=== PATIENT | male | born 2000 | race Asian ===

== ENCOUNTER 2021-09-29 17:14 | Inpatient (IN) ==
[2021-09-29] MEDS ORDERED: SODIUM CHLORIDE 0.9% 1000ML 2,000 ML IV ONE (17:35)
[2021-09-29 17:58] LABS: Appearance Urine Clear (Clear); Basophils # (auto) 0.02 K/uL (0-0.2); Basophils % (auto) 0.2 %; Bilirubin Urine Negative (Negative); Blood Urine Negative (Negative); Color Urine Yellow; Eosinophils # (auto) 0.19 K/uL (0-0.5); Glucose Urine UA 3+ (Negative); Hematocrit (blood only) 43.3 % (42-52); Hemoglobin 14.9 g/dL (14.0-18.0); Immature Granulocytes # (auto) 0.01 K/uL (0.00-0.02); Immature Granulocytes % (auto) 0.1 %; Ketones Urine Negative (Negative); Leukocyte Esterase Urine Negative (Negative); Lymphocytes # (auto) 2.67 K/uL (1.2-3.4); Lymphocytes % (auto) 28.1 %; Mean Corpuscular Hemoglobin 29.4 pg (25-34); Mean Corpuscular Hgb Conc 34.4 g/dL (32-36); Mean Corpuscular Volume 85.4 fL (80-100); Mean Platelet Volume 10.7 fL (7.4-10.4); Monocytes # (auto) 0.64 K/uL (0.11-0.59); Monocytes % (auto) 6.7 %; Neutrophils # (auto) 5.97 K/uL (1.4-6.5); Neutrophils % (auto) 62.9 %; Nitrite Urine Negative (Negative); Platelet Count 197 K/uL (130-400); Protein Urine Negative (Negative); RDW Coefficient of Variation 12.5 % (11.5-14.5); RDW Standard Deviation 38.5 fL (36.4-46.3); Red Blood Count 5.07 M/uL (4.7-6.1); Specific Gravity Urine 1.036 (1.000-1.030); Urobilinogen Urine Negative (Negative); pH Urine 6.5 (4.5-7.5)
[2021-09-29 18:06] LABS: Base Excess VBG 0.1 mEq/L; Oxygen Saturation VBG 75.9 %; pH VBG 7.37 (7.36-7.41)
[2021-09-29 18:13] LABS: Troponin I < 0.03 ng/ml (0-0.04)
--- NOTE | 2021-09-29 18:13 | Emergency Department Note ---
Impression & Plan Acute hyperglycemia, Diabetes mellitus, new onset ED Provider Note NAME: MARYBETH CARMONA AGE: 21 SEX: M : 2000 ARRIVES VIA: Walk-In INFORMANT: Patient, ED PROVIDER(S): Prince Marques DO CHIEF COMPLAINT: Polyuria HPI: Patient is a 21-year-old male who presented to the emergency department from [facility] for an evaluation of elevated blood sugar. The patient states that he has no history of diabetes but he is noticed polyuria and polydipsia. He checked his sugar with the machine he had at home. He has a family history of nakita ila. He went to [facility] and was evaluated and was found to have a very high blood sugar. He has noticed polyuria and polydipsia. He is also noticed some abdominal cramping. He denies having any fever. He denies having any cough or difficulty breathing. He states he has had some changes to his eating patterns. He is never had similar symptoms in the past. The patient states he came directly to the emergency department. He takes no medications. ROS: See above HPI for pertinent positives & negatives. A total of 10 systems reviewed and were otherwise negative. PAST MEDICAL HISTORY: See Below PAST SURGICAL HISTORY: See Below FAMILY HISTORY: See Below SOCIAL HISTORY: See Below HOME MEDICATIONS: See Below ALLERGIES: See Below VITALS: See Below PHYSICAL EXAMINATION: GENERAL: Patient is awake alert in no acute distress patient is resting comfortably and showing no signs of anxiety EYES: The conjunctivae are clear. The pupils are round and reactive. EARS, NOSE, MOUTH AND THROAT: The nose is without any evidence of any deformity. NECK: The neck is nontender and supple. RESPIRATORY: Normal respiratory effort is noted there is no evidence of wheezing rhonchi or rales CARDIOVASCULAR: Regular rate and rhythm noted there no murmurs rubs or gallops normal S1 normal S2. GASTROINTESTINAL: The abdomen is soft. Abdomen is nontender. MUSCULOSKELETAL/EXTREMITIES: There is no evidence of gross deformity full range of motion is noted in the hips and shoulders. SKIN: There is no obvious evidence of any rash. There are no petechiae, pallor or cyanosis noted. NEUROLOGIC: Patient is awake alert and oriented x3 MEDICAL DECISION MAKING: The patient is a 21-year-old male who presented to the emergency department for an evaluation of polyuria and polydipsia. The patient did check his blood sugar it was elevated at home. He was seen at [facility] and sent to the emergency department for further evaluation. The patient was treated with IV fluids in the emergency department. I discussed the patient's laboratory results with him. I also discussed his case with the on-call [facility] hospitalist. Given the patient's significant elevation in blood sugar I do feel the patient may be a better candidate for inpatient management. Triage Nursing notes reviewed. Prior medical records reviewed Vital Signs: reviewed and remarkable for elevated blood pressure and tachycard ia. Differential diagnosis: Infection, dehydration, metabolic abnormality, hypo/hyperglycemia, electrolyte disturbance, anemia, hypoxia, cardiac sources, intracerebral event, toxicologic, neurologic, as well as other pathologies. ER treatment provided: See below Diagnostics interpreted by me: ECG: EKG was obtained in the emergency department. My interpretation is normal sinus rhythm at 84 bpm. There was no ectopy. There is no acute ST segment abnormalities noted. Nonspecific inferior T wave abnormalities were noted. No previous tracing was available. Cardiac Monitoring: An order was placed for continuous cardiac monitoring. The monitor shows a rate of 94 bpm with sinus rhythm. Laboratory studies: As stated above and show below. Imaging studies: See below Consultation(s): Discussed this case [facility] Dr[facility] Past Med/Surg History Social History Smoking Status: Never smoker Feels Safe at Home: Yes Allergies Allergies Allergy/AdvReac Type Severity Reaction Status Date / Time No Known Allergies Allergy Unverified 09/29/21 19:26 Home Meds Home Medications Medication Instructions Recorded Confirmed No Known Home Medications 09/29/21 09/29/21 Results & Data (ED) Vital Signs Vital Signs - 24 hr 09/29/21 17:16 09/29/21 17:48 09/29/21 17:51 Temperature 36.4 C L Temperature Source Temporal Artery Scan Pulse Rate 94 H Respiratory Rate 18 14 Blood Pressure 155/70 H Blood Pressure [Right Arm] 144/78 H Blood Pressure Mean 98 Blood Pressure Mean [Right Arm] 100 Blood Pressure Position Sitting Pulse Oximetry 95 99 99 Oxygen Delivery Method Room Air Room Air Room Air Sepsis Recent Fever Within 48 Hours No Sepsis New/Unexplained Change in Mental Status No Sepsis Action Taken by Nursing No Action Required Home Medications Current Medication List: was personally reviewed by me Laboratory Data Attestation: I reviewed the patient's lab results. Result diagrams: 09/29/21 17:35 09/29/21 17:41 Lab Results 09/29/21 09/29/21 09/29/21 Range/Units 17:28 17:35 17:35 WBC 9.50 (4.8-10.8) K/uL RBC 5.07 (4.7-6.1) M/uL Hgb 14.9 (14.0-18.0) g/dL Hct 43.3 (42-52) % MCV 85.4 (80-100) fL MCH 29.4 (25-34) pg MCHC 34.4 (32-36) g/dL RDW Std Deviation 38.5 (36.4-46.3) fL RDW Coeff of Rohit 12.5 (11.5-14.5) % Plt Count 197 (130-400) K/uL MPV 10.7 H (7.4-10.4) fL Immature Gran % (Auto) 0.1 % Neut % (Auto) 62.9 % Lymph % (Auto) 28.1 % [place] % (Auto) 6.7 % Eos % (Auto) 2.0 % Baso % (Auto) 0.2 % Neut # (Auto) 5.97 (1.4-6.5) K/uL Lymph # (Auto) 2.67 (1.2-3.4) K/uL [place] # (Auto) 0.64 H (0.11-0.59) K/uL Eos # (Auto) 0.19 (0-0.5) K/uL Baso # (Auto) 0.02 (0-0.2) K/uL Immature Gran # (Auto) 0.01 (0.00-0.02) K/uL VBG pH (7.36-7.41) VBG pCO2 (38-50) mmHg VBG pO2 mmHg VBG HCO3 mmol/L VBG O2 Saturation % VBG Base Excess mEq/L Barometric Pressure mm/Hg Sodium (136-145) mmol/L Potassium Chloride (98-107) mmol/L Carbon Dioxide (21-32) mmol/L Anion Gap (3-11) BUN (6-23) mg/dl Creatinine (0.6-1.4) mg/dl Est Cr Clr Drug Dosing ml/min Est GFR ( Amer) ml/min Est GFR (Non-Af Amer) ml/min BUN/Creatinine Ratio (10-20) Glucose (70-99(Fasting)) mg/dl POC Glucose > 600 H* (70-99) mg/dl Calcium (8.5-10.1) mg/dl Magnesium (1.7-2.4) mg/dl Total Bilirubin (0.2-1.0) mg/dl AST ALT (7-52) U/L Alkaline Phosphatase (34-104) U/L Troponin I (0-0.04) ng/ml Total Protein (6.0-8.3) gm/dl Albumin (3.4-5.0) gm/dl Globulin (2.5-4.0) gm/dl Albumin/Globulin Ratio (0.9-2) TSH 1.971 (0.300-4.500) uIu/ml Urine Color Urine Appearance (Clear) Urine pH (4.5-7.5) Ur Specific [place] (1.000-1.030) Urine Protein (Negative) Urine Glucose (UA) (Negative) Urine Ketones (Negative) Urine Blood (Negative) Urine Nitrite (Negative) Urine Bilirubin (Negative) Urine Urobilinogen (Negative) Ur Leukocyte Esterase (Negative) SARS-CoV-2, RNA, NAAT (NEGATIVE) 09/29/21 09/29/21 09/29/21 Range/Units 17:35 17:40 17:41 WBC (4.8-10.8) K/uL RBC (4.7-6.1) M/uL Hgb (14.0-18.0) g/dL Hct (42-52) % MCV (80-100) fL MCH (25-34) pg MCHC (32-36) g/dL RDW Std Deviation (36.4-46.3) fL RDW Coeff of Rohit (11.5-14.5) % Plt Count (130-400) K/uL MPV (7.4-10.4) fL Immature Gran % (Auto) % Neut % (Auto) % Lymph % (Auto) % [place] % (Auto) % Eos % (Auto) % Baso % (Auto) % Neut # (Auto) (1.4-6.5) K/uL Lymph # (Auto) (1.2-3.4) K/uL [place] # (Auto) (0.11-0.59) K/uL Eos # (Auto) (0-0.5) K/uL Baso # (Auto) (0-0.2) K/uL Immature Gran # (Auto) (0.00-0.02) K/uL VBG pH 7.37 (7.36-7.41) VBG pCO2 45 (38-50) mmHg VBG pO2 42 mmHg VBG HCO3 26 mmol/L VBG O2 Saturation 75.9 % VBG Base Excess 0.1 mEq/L Barometric Pressure 729.1 mm/Hg Sodium 128 L (136-145) mmol/L Potassium TNP Chloride 94 L (98-107) mmol/L Carbon Dioxide 23 (21-32) mmol/L Anion Gap 11 (3-11) BUN 11 (6-23) mg/dl Creatinine 1.09 (0.6-1.4) mg/dl Est Cr Clr Drug Dosing 123.5 ml/min Est GFR ( Amer) 112.6 ml/min Est GFR (Non-Af Amer) 97.2 ml/min BUN/Creatinine Ratio 10.1 (10-20) Glucose 620 H* (70-99(Fasting)) mg/dl POC Glucose (70-99) mg/dl Calcium 9.4 (8.5-10.1) mg/dl Magnesium 1.9 (1.7-2.4) mg/dl Total Bilirubin 0.5 (0.2-1.0) mg/dl AST TNP ALT 56 H (7-52) U/L Alkaline Phosphatase 56 (34-104) U/L Troponin I < 0.03 (0-0.04) ng/ml Total Protein 7.3 (6.0-8.3) gm/dl Albumin 4.8 (3.4-5.0) gm/dl Globulin 2.5 (2.5-4.0) gm/dl Albumin/Globulin Ratio 1.9 (0.9-2) TSH (0.300-4.500) uIu/ml Urine Color Yellow Urine Appearance Clear (Clear) Urine pH 6.5 (4.5-7.5) Ur Specific [place] 1.036 H (1.000-1.030) Urine Protein Negative (Negative) Urine Glucose (UA) 3+ H (Negative) Urine Ketones Negative (Negative) Urine Blood Negative (Negative) Urine Nitrite Negative (Negative) Urine Bilirubin Negative (Negative) Urine Urobilinogen Negative (Negative) Ur Leukocyte Esterase Negative (Negative) SARS-CoV-2, RNA, NAAT (NEGATIVE) 09/29/21 09/29/21 09/29/21 Range/Units 18:42 19:27 19:27 WBC (4.8-10.8) K/uL RBC (4.7-6.1) M/uL Hgb (14.0-18.0) g/dL Hct (42-52) % MCV (80-100) fL MCH (25-34) pg MCHC (32-36) g/dL RDW Std Deviation (36.4-46.3) fL RDW Coeff of Rohit (11.5-14.5) % Plt Count (130-400) K/uL MPV (7.4-10.4) fL Immature Gran % (Auto) % Neut % (Auto) % Lymph % (Auto) % [place] % (Auto) % Eos % (Auto) % Baso % (Auto) % Neut # (Auto) (1.4-6.5) K/uL Lymph # (Auto) (1.2-3.4) K/uL [place] # (Auto) (0.11-0.59) K/uL Eos # (Auto) (0-0.5) K/uL Baso # (Auto) (0-0.2) K/uL Immature Gran # (Auto) (0.00-0.02) K/uL VBG pH (7.36-7.41) VBG pCO2 (38-50) mmHg VBG pO2 mmHg VBG HCO3 mmol/L VBG O2 Saturation % VBG Base Excess mEq/L Barometric Pressure mm/Hg Sodium (136-145) mmol/L Potassium Cancelled Cancelled Chloride (98-107) mmol/L Carbon Dioxide (21-32) mmol/L Anion Gap (3-11) BUN (6-23) mg/dl Creatinine (0.6-1.4) mg/dl Est Cr Clr Drug Dosing ml/min Est GFR ( Amer) ml/min Est GFR (Non-Af Amer) ml/min BUN/Creatinine Ratio (10-20) Glucose (70-99(Fasting)) mg/dl POC Glucose (70-99) mg/dl Calcium (8.5-10.1) mg/dl Magnesium (1.7-2.4) mg/dl Total Bilirubin (0.2-1.0) mg/dl AST Cancelled Cancelled ALT (7-52) U/L Alkaline Phosphatase (34-104) U/L Troponin I (0-0.04) ng/ml Total Protein (6.0-8.3) gm/dl Albumin (3.4-5.0) gm/dl Globulin (2.5-4.0) gm/dl Albumin/Globulin Ratio (0.9-2) TSH (0.300-4.500) uIu/ml Urine Color Urine Appearance (Clear) Urine pH (4.5-7.5) Ur Specific [place] (1.000-1.030) Urine Protein (Negative) Urine Glucose (UA) (Negative) Urine Ketones (Negative) Urine Blood (Negative) Urine Nitrite (Negative) Urine Bilirubin (Negative) Urine Urobilinogen (Negative) Ur Leukocyte Esterase (Negative) SARS-CoV-2, RNA, NAAT NEGATIVE (NEGATIVE) Administered Medications Discontinued Medications Sodium Chloride (Nss 1000ml) 2,000 mls @ 999 mls/hr IV .Q2H1M ONE Stop: 09/29/21 19:35 Last Admin: 09/29/21 17:43 Dose: 999 mls/hr Documented by: [id number] Imaging Data Radiologist's Impression: Chest X-Ray 09/29/21 17:34 XR chest 1V portable CLINICAL HISTORY: weakness COMPARISON STUDY: No previous studies for comparison. FINDINGS: Lung volumes are normal. Lungs are clear. There is no pneumothorax or pleural effusion. Cardiac size is normal. Mediastinal contours are normal. There is no evidence for pulmonary edema. IMPRESSION: No acute cardiopulmonary findings. ACT 112: Negative or not required by law. Electronically signed by: Aries Koch M.D. 09/29/2021 8:15 PM Discharge Plan Visit Data Chief Complaint: Hyperglycemia Stated Complaint: ELEVATED BLOOD SUGAR ED Provider: Prince Marques Discharge Problem: Acute hyperglycemia, Diabetes mellitus, new onset Patient Disposition: Being Evaluated by Hospitalist Forms Stand Alone Forms: Sling [facility] Prescriptions Prescriptions: No Action No Known Home Medications RF: 0 Referrals [facility]errals: [facility] [Primary Care Provider] -
[2021-09-29 18:33] LABS: Alanine Aminotransferase 56 U/L (7-52); Albumin Globulin Ratio 1.9 (0.9-2); Albumin Level 4.8 gm/dl (3.4-5.0); Alkaline Phosphatase 56 U/L (34-104); Anion Gap 11 (3-11); BUN Creatinine Ratio 10.1 (10-20); Bilirubin,Total 0.5 mg/dl (0.2-1.0); Blood Urea Nitrogen 11 mg/dl (6-23); Calcium 9.4 mg/dl (8.5-10.1); Carbon Dioxide 23 mmol/L (21-32); Chloride 94 mmol/L (98-107); Creatinine Clr Calc Pharmacy 123.5 ml/min; Est GFR (African American) 112.6 ml/min; Est GFR (Non-African American) 97.2 ml/min; Globulin 2.5 gm/dl (2.5-4.0); Glucose 620 mg/dl (70-99(Fasting)); Magnesium 1.9 mg/dl (1.7-2.4); Sodium 128 mmol/L (136-145); Total Protein 7.3 gm/dl (6.0-8.3)
--- NOTE | 2021-09-29 20:16 | XRay Report ---
XR chest 1V portable CLINICAL HISTORY: weakness COMPARISON STUDY: No previous studies for comparison. FINDINGS: Lung volumes are normal. Lungs are clear. There is no pneumothorax or pleural effusion. Car diac size is normal. Mediastinal contours are normal. There is no evidence for pulmonary edema. IMPRESSION: No acute cardiopulmonary findings. ACT 112: Negative or not required by law. Electronically signed by: Aries Koch M.D. 09/29/2021 8:15 PM
--- NOTE | 2021-09-29 20:43 | History & Physical Report ---
Date of Service September 29, 2021 Assessment & Plan (1) Acute hyperglycemia: Plan: -Without anion gap or ketones. -Random sugar > 200 with symptoms of polydipsia and polyuria qualifies pt for DM diagnosis. Unsure if this is type I or II. -Initial BGM 620, recheck in ED => 329 around 9:00 PM, after receiving 2L NS bolus. -Accu-Cheks once before bed, if sugar < 250, can switch to achs. If BGM remains elevated, check Q2h throughout the night. -Will give continuous IV fluids overnight, anticipate his sugar will normalize with this given his response to the 2L he already received. -K+ 3.7, KCl 40 mEq now and again later tonight. -CBC, BMP, lipid panel in AM. -HbA1c pending. (2) Obese: Plan: -BMI 31.4, this is likely contributing to patient's diabetes. -Educated on the importance of exercise and diet to promote weight loss. Plan: -Admit to MedSurg. -SCDs, Lovenox for DVT PPx. -Full code. History of Present Illness Chief Complaint: hyperglycemia Primary Care Provider: [facility] Patient is a previously healthy 21 y/o male who presents today from [facility] d/t elevated sugar at home. Patient states due to his family history of diabetes, and increase in thirst as well as frequent, malodorous urine, patient bought a home glucometer around [facility] so that he may monitor her sugars. He states previously he had been checking it several times a month and they had been slightly elevated between 100 and 200. This morning, upon awakening and on empty stomach he checked his sugar and it was in 200s. He ate lunch, and then went to [facility] to have his sugar checked and it was apparently greater than 600, so they urged him to come to the ED for further evaluation He also describes an intermittent mild, dull abdominal pain for the past several weeks that does not bother him much, is just enough to notice it is there. Has not taken any medications for this. Is otherwise without complaints, no recent illnesses, fever/chills, myalgias, fatigue, chest pain, shortness of breath, nausea, vomiting, diarrhea, constipation, recent weight loss or weight gain, peripheral edema. Patient does not have a previous history of diabetes, but does have family history in mother and maternal grandfather. Patient states they both have to inject themselves with insulin, but he unsure if this is type I or II. In ED, VSS and wnl. Labs significant for initial glucose 620--> 329 after 2L NS. K+ 3.7, without anion gap. UA with concentrated urine and 3+ glucose, otherwise labs and imaging unremarkable. Patient received 2 L normal saline bolus in ED, and hospitalist service was consulted for the for further evaluation and admission. Allergies Allergy/AdvReac Type Severity Reaction Status Date / Time No Known Allergies Allergy Unverified 09/29/21 19:26 Home Medications Medication Instructions Recorded Confirmed Type blood sugar diagnostic (OneTouch #100 ea 09/30/21 Rx Verio test strips) insulin glargine 100 unit/mL (3 10 unit SUBCUT DAILY #15 ml 09/30/21 Rx mL) subcutaneous pen (Lantus Solostar U-100 Insulin) lancets 33 gauge (OneTouch Delica #100 ea 09/30/21 Rx Lancets) metformin 500 mg tablet 500 mg PO DAILY #30 tab 09/30/21 Rx pen needle, diabetic 32 gauge x #100 ea 09/30/21 Rx 5/32" (Comfort EZ Pen [place]) Past Med/Surg History Social History Smoking Status: Never smoker Hx Alcohol Use: No Hx Substance Use: No Preferred Language: Guamanian Communication Ability: Effective 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: No Beliefs That Will Affect Care: None Current Living Situation Comment: [facility] Feels Safe at Home: Yes Assistive Devices: None Review of Systems Review of Systems: Constitutional: No fever, sweats or chills Eyes: No diplopia, no worsening or blurred vision ENT: normal hearing, no trouble swallowing Respiratory: No cough, sputum, dyspnea at rest or on exertion Cardiovascular: No chest pain, tightness or palpitations Abdomen: Intermittent vague, mild abdominal pain for several weeks; denies nausea, vomiting, diarrhea or constipation Musculoskeletal: No joint pain, calf pain, swelling Neurologic: No weakness, numbness/tingling, or balance problems Psychiatric: No anxiety or depression Skin: No rash or itch Physical Exam Physical Exam: General: awake, alert, no apparent distress, patient is overweight Head: Normocephalic, atraumatic ENT: PERRL, EOMI, no pharyngeal exudate, mucous membranes moist Chest: Clear to auscultation, on room air, no adventitious breath sounds Cardiac: Regular rate and rhythm, no murmur, no JVD, normal peripheral pulses, good capillary refill Abdominal: NABS x 4 quadrants, soft, nontender to palpation, no rebound, guarding or tenderness Extremities: Normal inspection, no peripheral edema or erythema, calfs non tender to palpation Psych: Normal mood and affect Neuro: AAO x 3, strength intact bilaterally and rated 5/5, no motor deficits, speech is clear, no peripheral sensory deficits Skin: no rash or erythema Results & Data Results & Data ([facility]) Vital Signs (Past 12 Hours) Vital Signs Temp Pulse Resp BP BP Pulse Ox 09/29/21 17:51 99 09/29/21 17:48 14 144/78 H 99 09/29/21 17:16 36.4 C L 94 H 18 155/70 H 95 Laboratory Results Abnormal lab results 09/29/21 09/29/21 09/29/21 Range/Units 17:28 17:35 17:35 MPV 10.7 H (7.4-10.4) fL [place] # (Auto) 0.64 H (0.11-0.59) K/uL Sodium (136-145) mmol/L Chloride (98-107) mmol/L Glucose (70-99(Fasting)) mg/dl POC Glucose > 600 H* (70-99) mg/dl ALT (7-52) U/L Ur Specific [place] 1.036 H (1.000-1.030) Urine Glucose (UA) 3+ H (Negative) 09/29/21 09/29/21 Range/Units 17:41 20:59 MPV (7.4-10.4) fL [place] # (Auto) (0.11-0.59) K/uL Sodium 128 L (136-145) mmol/L Chloride 94 L (98-107) mmol/L Glucose 620 H* (70-99(Fasting)) mg/dl POC Glucose 329 H* (70-99) mg/dl ALT 56 H (7-52) U/L Ur Specific [place] (1.000-1.030) Urine Glucose (UA) (Negative) Diagnostic Findings Chest X-Ray 09/29/21 17:34 XR chest 1V portable CLINICAL HISTORY: weakness COMPARISON STUDY: No previous studies for comparison. FINDINGS: Lung volumes are normal. Lungs are clear. There is no pneumothorax or pleural effusion. Cardiac size is normal. Mediastinal contours are normal. There is no evidence for pulmonary edema. IMPRESSION: No acute cardiopulmonary findings. ACT 112: Negative or not required by law. Electronically signed by: Aries Koch M.D. 09/29/2021 8:15 PM ECG Additional Comments: Normal sinus rhythm with sinus arrhythmia Normal ECG No previous ECGs available Code Status & VTE Plan Code Status Full Code. Supervising Physician Co-Signing Physician Notes Attending addendum: I have physically seen this patient, have supervised the YAMIL's activities, and agree with the H&P unless as otherwise noted. Assessment and Plan: Acute hyperglycemia- No previous history of diabetes Initial glucose 620 Follow-up glucose after 2 L of normal saline was 329 Placed on Accu-Cheks before meals and at bedtime with NovoLog coverage per scale Check hemoglobin A1c and fasting lipid panel Give 40 mEq potassium chloride now for potassium 3.7 Follow serial CBC C with differential, BMP and magnesium level in a.m. Diabetic education teach patient how to do Accu-Cheks, of which his family is very familiar Arrange for appropriate outpatient care after discharge Remaining orders and notations as noted PG Care Time/CCT Total # of Minutes Spent Total Time Spent with Patient: Total time spent is greater than 50% in coordination of care (as documented) at patient's floor/unit and/or counseling patient: Coding Level of Care Code INT OBSERVATION CARE 70M LVL 3 Diagnoses Acute hyperglycemia R73.9 Obese E66.9
[2021-09-29 21:14] LABS: Potassium 3.7 mmol/L (3.5-5.1)
[2021-09-29] MEDS ORDERED: POTASSIUM CHLORIDE CRTAB 20 MEQ TABCR PO STA (21:21)
[2021-09-29] MEDS ORDERED: POLYETHYLENE (MIRALAX) 17 GM PACK PO PRN (22:19)
[2021-09-29] MEDS ORDERED: ACETAMINOPHEN 325 MG TAB PO PRN (22:19)
[2021-09-29] MEDS ORDERED: ONDANSETRON INJ 2 MG/ML 2 ML VIAL IV PRN (22:19)
[2021-09-29] MEDS ORDERED: ENOXAPARIN INJ 40 MG/0.4 ML SYR SQ SCH (22:30)
[2021-09-29] MEDS ORDERED: POTASSIUM CHLORIDE CRTAB 20 MEQ TABCR PO ONE (23:00)
[2021-09-29] MEDS: NORMOSOL-R 1,000 ML IV SCH (23:32)
[2021-09-30] MEDS ORDERED: SODIUM CHLORIDE 0.9% 1000ML 1,000 ML IV ONE (00:31)
[2021-09-30 06:15] LABS: Basophils # (auto) 0.01 K/uL (0-0.2); Basophils % (auto) 0.1 %; Eosinophils # (auto) 0.18 K/uL (0-0.5); Eosinophils % (auto) 2.4 %; Hematocrit (blood only) 38.7 % (42-52); Hemoglobin 13.4 g/dL (14.0-18.0); Lymphocytes # (auto) 2.82 K/uL (1.2-3.4); Lymphocytes % (auto) 38.4 %; Mean Corpuscular Hemoglobin 29.3 pg (25-34); Mean Corpuscular Hgb Conc 34.6 g/dL (32-36); Mean Corpuscular Volume 84.7 fL (80-100); Mean Platelet Volume 9.9 fL (7.4-10.4); Monocytes # (auto) 0.46 K/uL (0.11-0.59); Monocytes % (auto) 6.3 %; Neutrophils # (auto) 3.88 K/uL (1.4-6.5); Neutrophils % (auto) 52.8 %; Platelet Count 157 K/uL (130-400); RDW Coefficient of Variation 12.5 % (11.5-14.5); RDW Standard Deviation 38.1 fL (36.4-46.3); Red Blood Count 4.57 M/uL (4.7-6.1); White Blood Count 7.35 K/uL (4.8-10.8)
[2021-09-30 06:43] LABS: Anion Gap 8 (3-11); BUN Creatinine Ratio 11.8 (10-20); Blood Urea Nitrogen 8 mg/dl (6-23); Calcium 8.1 mg/dl (8.5-10.1); Carbon Dioxide 20 mmol/L (21-32); Chloride 103 mmol/L (98-107); Chol HDL Ratio 7.2 (0-5); Cholesterol 216 mg/dl (0-200); Creatinine Clr Calc Pharmacy 198.6 ml/min; Est GFR (African American) > 150.0 ml/min; Est GFR (Non-African American) 137.5 ml/min; Glucose 267 mg/dl (70-99(Fasting)); HDL Cholesterol 30 mg/dl; Magnesium 1.9 mg/dl (1.7-2.4); Potassium 4.2 mmol/L (3.5-5.1); Sodium 131 mmol/L (136-145); Triglycerides 485 mg/dl (0-150)
[2021-09-30 07:37] LABS: Estimated Average Glucose 332 mg/dl; Hemoglobin A1C 13.2 % (4.5-5.6)
[2021-09-30] MEDS: NORMOSOL-R 1,000 ML IV SCH ×2 (08:27→12:46)
[2021-09-30] MEDS ORDERED: DEXTROSE 50% 50 ML SYRINGE IV PRN (09:41)
[2021-09-30] MEDS ORDERED: GLUCOSE 40% GEL 15 GM TUBE PO PRN (09:41)
[2021-09-30] MEDS ORDERED: GLUCAGON FOR INJ 1 MG VIAL SQ PRN (09:41)
[2021-09-30] MEDS ORDERED: CARBOHYDRATES FOR HYPOGLYCEMIA PO PRN (09:41)
[2021-09-30] MEDS ORDERED: GLUCOSE 10 TABS/TUBE PO PRN (09:41)
[2021-09-30] MEDS ORDERED: INSULIN GLARGINE SOLOSTAR 100 UNITS/ML 3 ML PEN SC SCH (09:45)
[2021-09-30] MEDS: INSULIN ASPART PER UNIT SC SCH ×2 (11:07→12:45)
--- NOTE | 2021-09-30 16:20 | Discharge Summary ---
Date of Service September 30, 2021 Admission HPI Per Admitting Provider Patient is a previously healthy 21 y/o male who presents today from [facility] d/t elevated sugar at home. Patient states due to his family history of diabetes, and increase in thirst as well as frequent, malodorous urine, patient bought a home glucometer around [facility] so that he may monitor her sugars. He states previously he had been checking it several times a month and they had been slightly elevated between 100 and 200. This morning, upon awakening and on empty stomach he checked his sugar and it was in 200s. He ate lunch, and then went to [facility] to have his sugar checked and it was apparently greater than 600, so they urged him to come to the ED for further evaluation He also describes an intermittent mild, dull abdominal pain for the past several weeks that does not bother him much, is just enough to notice it is there. Has not taken any medications for this. Is otherwise without complaints, no recent illnesses, fever/chills, myalgias, fatigue, chest pain, shortness of breath, nausea, vomiting, diarrhea, constipation, recent weight loss or weight gain, peripheral edema. Patient does not have a previous history of diabetes, but does have family history in mother and maternal grandfather. Patient states they both have to inject themselves with insulin, but he unsure if this is type I or II. In ED, VSS and wnl. Labs significant for initial glucose 620--> 329 after 2L NS. K+ 3.7, without anion gap. UA with concentrated urine and 3+ glucose, otherwise labs and imaging unremarkable. Patient received 2 L normal saline bolus in ED, and hospitalist service was consulted for the for further evaluation and admission. Principal Diagnosis Diabetes mellitus Discharge Exam Constitutional WD/WN, vitals as above Eyes PERRL, conjunctivae normal, anicteric sclerae Neck trachea midline, no thyromegaly Respiratory normal respiratory effort, lungs clear to auscultation Cardiovascular RRR, no murmur, no edema Gastrointestinal (Abdomen) normal bowel sounds, soft, nontender, no hepatosplenomegaly Musculoskeletal Head/Neck/Chest: normocephalic and head atraumatic Neurologic moves all extremities Psychiatric A+Ox3, euthymic affect Discharge Data Allergies Allergy/AdvReac Type Severity Reaction Status Date / Time No Known Allergies Allergy Unverified 09/29/21 19:26 Consultations 09/29/21 20:07 ED Decision to Admit Stat Hospital Course (1) Acute hyperglycemia: -Without anion gap or ketones. -Random sugar > 200 with symptoms of polydipsia and polyuria qualifies pt for DM diagnosis. Likely to be type 2 diabetes. -Started on 500 mg of Metformin daily and Lantus 10 units in the morning. Follow-up with myself in 1 week. -Recommended the patient to check his blood sugars 4 times a day: 3 times which is going to be prior to each meal and once at night. Patient is to keep a journal and bring it to the follow-up appointment with myself in 1 week. -Recommended lifestyle changes including weight loss, increasing exercise, and watching diet. -Initial BGM 620, recheck in ED => 329 around 9:00 PM, after receiving 2L NS bolus. -Accu-Cheks once before bed, if sugar < 250, can switch to achs. If BGM remains elevated, check Q2h throughout the night. -Will give continuous IV fluids overnight, anticipate his sugar will normalize with this given his response to the 2L he already received. -K+ 3.7 -HbA1c at 13.2 during hospitalization (2) Obese: -BMI 31.4, this is likely contributing to patient's diabetes. -Educated on the importance of exercise and diet to promote weight loss. -D/c home -Full code. Total Time Total Time Spent Total Time Spent (In Minutes): 30 Discharge Plan Discharge Items Patient Disposition: Home - Self-Care Reason For Visit: HYPERGYLCEMIA WITHOUT KETOCIDOSIS Discharge Diagnosis: Type 2 diabetes Activity: Per Instructions section Non-emergency contact: Primary Care Provider Call non-emergency contact if: you have any medication questions Follow-up/Referrals: [facility] [Primary Care Provider] - (please contact office to make appointment ) Jaylen Mobley DO [Resident] - (please contact office to make appointment ) Diet: Carb Consistent or DM2 Addtl Attending Provider Instructions: Mr. Alvarado, It was our pleasure caring for you at [facility] from 09/29/21 to 09/30/21 in regards to your hyperglycemia (high blood sugar) and new found Diabetes. While here, your blood sugars were controlled with both intravenous fluids and insulin. You are being started on three (3) new medications in regards to treatment for your diabetes. You will also be scheduled for close follow up with Dr. Mobley for outpatient adjustments in your blood sugar. Please see below for further instructions: 1) Please take the following medications for control of your blood sugar 1) Metformin 1 tablet 500mg QD 2) Lantus (long acting insulin) 10units in the morning daily 2) Please check your glucose levels 4 times a day and keep log of the values until seen by Dr. Mobley. Once at night and before meals. If you have symptoms of light headedness, weakness, or fatigue, checking your sugar at that time as well. 3) Follow up with Dr. Mobley Pending Studies at Discharge: No Stand-Alone Forms: [facility] [employer], Work/School Release, Smoking Cessation Medications and DC Order Prescriptions: New Lantus Solostar U-100 Insulin 100 unit/mL (3 mL) insulin pen 10 unit subcut DAILY Qty: 15 RF: 1 (DME) pen needle, diabetic [Comfort EZ Pen [place]] 32 gauge x 5/32" needle See Rx Instructions .Route Qty: 100 RF: 0 metformin 500 mg tablet 500 mg PO DAILY Qty: 30 RF: 1 (DME) OneTouch Verio test strips Strip See Rx Instructions .Route Qty: 100 RF: 0 (DME) lancets [OneTouch Delica Lancets] 33 gauge misc See Rx Instructions .Route Qty: 100 RF: 1 Discharge Orders: Discharge Order (Routine); Ordered 09/30/21 Ordered By: Sesar Robertson Admission Data Admit Date/Time: 09/29/21 21:09 Attending Provider: Fred Lopez Admit Provider: Martinez Rutledge Primary Care Provider: [facility] Other Providers: Martinez Rutledge Other Interventions: Discharge Summary Assessment (RN) Last Done: 09/30/21 15:47 Supervising Physician Co-Signing Physician Notes I personally examined the patient and verified all rojo points of history and exam, discussed case, and agree with decision making with Dr Mobley Feels okay. Has been educated extensively. Appreciate staff development educator input. Feels up to going home. Vitals noted, in general he is awake and alert pleasant no distress. HEENT normocephalic atraumatic mucous membranes moist. Breathing unlabored no accessory muscle use good effort. Skin shows no rashes no pallor or icterus. Neuro without focal deficits. New onset type 2 diabetes Almost certainly has to be type II given the slow onset, and the fact that his sugars improved by about 400 points with no units of insulin given, just hydration A1c 13.2 -lifestyle changes -metformin, lantus - but hopefully with lifestyle change this can improve/be less meds
--- NOTE | 2021-09-30 17:58 | Billing Data ---
Date of Service September 30, 2021 Coding Level of Care Code D/C DAY MANAGEMENT <30 MINS
--- NOTE | 2021-09-30 21:58 | Electrocardiogram Report ---
Test Reason : Blood Pressure : / mmHG Vent. Rate : 084 BPM Atrial Rate : 084 BPM P-R Int : 144 ms QRS Dur : 104 ms QT Int : 348 ms P-R-T Axes : 053 056 011 degrees QTc Int : 411 ms Poor data quality, interpretation may be adversely affected Normal sinus rhythm with sinus arrhythmia Normal ECG No previous ECGs available Confirmed by August Herrera ([id number]) on 09/30/2021 9:57:51 PM Referred By: REFERRED SELF Confirmed By:August Herrera
== END 2021-09-30 16:17 | disposition home or self-care (01) | DRG 639 ==
LOC: ED 17:14 → 3E 21:09 → SUATTDRO 21:09 → 3E 21:56